=== PATIENT | female | born 1965 | race Caucasian/White ===

== ENCOUNTER 2018-02-26 05:50 | Day surgery (SDC) | payer MEDICAID ==
[~2018-02-26] VITALS: Ht 152.4 cm; Wt 52.2 kg
[2018-02-26] MEDS ORDERED: LACTATED RINGERS 1,000 ML IV SCH (06:15)
[2018-02-26 07:00] LABS: UCG SCREEN NEGATIVE
[2018-02-26] MEDS ORDERED: SODIUM CHLORIDE 0.9% 1,000 ML IV ONE (08:16)
[2018-02-26] MEDS ORDERED: TRIAMCINOLONE ACETONIDE 40MG/ML 1ML VIAL ONE (08:23)
[2018-02-26] MEDS ORDERED: ONDANSETRON HCL 4MG/2ML VIAL IV PRN (08:30)
[2018-02-26] MEDS ORDERED: ONDANSETRON HCL 4MG/2ML VIAL ONE (08:37)
[2018-02-26] MEDS ORDERED: TETRACAINE 0.5% OPHTH DROPS 4ML ONE (13:16)
[2018-02-26] MEDS ORDERED: LIDOCAINE HCL 2%/EPINEPHRINE 1:100,000 20 ML VIAL INFIL ONE (13:16)
[2018-02-26] MEDS ORDERED: BUPIVACAINE HCL/PF 0.75% (7.5MG/ML) 10ML ONE (13:16)
[2018-02-26] MEDS ORDERED: BALANCED SALT IRRIG SOLN 15ML ONE (13:16)
[2018-02-26] MEDS ORDERED: NEO/POLYMYX B SULF/DEXAMETH OPHTH OINT 3.5GM ONE (13:16)
[2018-02-26] MEDS ORDERED: CIPROFLOXACIN 0.3% OPHTH SOLN 2.5ML ONE (13:16)
== END 2018-02-26 10:00 | disposition home or self-care (01) ==
LOC: OR 05:50
PROVIDERS: ATTEND Ophthalmology
DX: H11.001 Unspecified pterygium of right eye (principal); K21.9 Gastro-esophageal reflux disease without esophagitis; Z98.51 Tubal ligation status; Z79.899 Other long term (current) drug therapy
CPT/HCPCS: 65426; 68200; 81025; J2405; J3301; J3490; J7120